=== PATIENT | male | born 1995 | race American Indian/Alaskan Native ===

== ENCOUNTER 2018-10-14 19:07 | Emergency (ER) | payer BC, OTHER ==
--- NOTE | 2018-10-14 19:22 | EDM.PDOC ---
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 Right Foot Pain Score (Numeric/FACES): 3 - Related Data Allergies Allergy/AdvReac Type Severity Reaction Status Date / Time No Known Allergies Allergy Verified 10/14/18 19:26 Home Meds: Home Meds . [No Known Home Meds] 01/08/15 [History] Past Medical History - Past Health History Medical/Surgical History: Denies Medical/Surgical History ED ROS GENERAL - Review of Systems Review Of Systems: ROS reveals no pertinent complaints other than HPI. ED EXAM, GENERAL - Physical Exam Exam: See Below Exam Limited By: No Limitations General Appearance: Alert, WD/WN, Mild Distress, Other (discomfort) Ears: Hearing Grossly Normal Throat/Mouth: Normal Voice, No Airway Compromise Head: Atraumatic Neck: Non-Tender, Full Range of Motion Respiratory/Chest: No Respiratory Distress Cardiovascular: Regular Rate, Rhythm GI/Abdominal: Soft, Non-Tender Extremities: Other (right 5th toe ecchymotic, WNL wnl, gait limited to pain) Neurological: Alert, Oriented, Normal Cognition, No Motor/Sensory Deficits Psychiatric: Normal Affect, Normal Mood Skin Exam: Warm, Dry, Normal Color Lymphatic: No Adenopathy Course - Vital Signs Last Recorded V/S: Last Vital Signs Temp 37.3 C 10/14/18 19:17 Pulse 101 H 10/14/18 19:17 Resp 18 10/14/18 19:17 BP 149/87 H 10/14/18 19:17 Pulse Ox 99 10/14/18 19:17 - Re-Assessments/Exams Free Text/Narrative Re-Assessment/Exam: 10/14/18 20:28 results discussed with pt. Departure - Departure Time of Disposition: 20:29 Disposition: Home, Self-Care 01 Condition: Good Clinical Impression: Injury of toe on right foot Qualifiers: Encounter type: initial encounter Qualified Code(s): S99.921A - Unspecified injury of right foot, initial encounter - Discharge Information Forms: ED Department Discharge Additional Instructions: 1) elevate right leg as much as possible next 48 hours 2) follow up at clinic 3) take tylenol or motrin for pain
[2018-10-14 19:26] VITALS: BP 149/87; PULSE 101
== END 2018-10-14 20:35 | disposition home or self-care (01) ==
LOC: DL.ED 19:07
DX: S90.121A Contusion of right lesser toe(s) without damage to nail, initial encounter (principal); W24.0XXA Contact with lifting devices, not elsewhere classified, initial encounter
CPT/HCPCS: 73620-RT; 99283-25

== ENCOUNTER 2020-01-02 18:45 | Emergency (ER) | payer BC, OTHER ==
[2020-01-02 18:52] VITALS: BP 155/87; PULSE 93
--- NOTE | 2020-01-02 19:42 | CR ---
PROCEDURE INFORMATION: Exam: XR Left Toe(s) Exam date and time: 01/02/2020 7:31 PM Age: 24 years old Clinical indication: Pain; Toes; Left; Additional info: [place] fell toe, laceration, bruising swelling TECHNIQUE: Imaging protocol: XR Left toes. Views: Minimum 2 views. COMPARISON: No relevant prior studies available. FINDINGS: Bones/joints: There is comminuted fracture throughout 1st proximal phalanx. Fracture extends to both proximal and distal articular surfaces. IMPRESSION: Comminuted 1st proximal phalanx fracture
[2020-01-02] MEDS ORDERED: Cephalexin 500 MG Cap PO ONE (20:01)
--- NOTE | 2020-01-02 20:03 | EDM.PDOC ---
ED HPI GENERAL MEDICAL PROBLEM - General Chief Complaint: Laceration Stated Complaint: BIG TOE PAIN Time Seen by Provider: 01/02/20 19:05 Source of Information: Reports: Patient History Limitations: Reports: No Limitations - History of Present Illness INITIAL COMMENTS - FREE TEXT/NARRATIVE: ED ambulatory with report of trailer door fell on toe around 4pm. Laceration to toe and pain with walking. Unsure of last tetnus, In [employer] so believes would be current. No other injury. - Related Data Allergies Allergy/AdvReac Type Severity Reaction Status Date / Time No Known Allergies Allergy Verified 10/14/18 19:26 Home Meds: Home Meds . [No Known Home Meds] 01/08/15 [History] Past Medical History - Past Health History Medical/Surgical History: Denies Medical/Surgical History Social & Family History - Family History Family Medical History: Noncontributory - Tobacco Use Smoking Status *Q: Never Smoker - Caffeine Use Caffeine Use: Reports: Soda - Recreational Drug Use Recreational Drug Use: No ED ROS GENERAL - Review of Systems Review Of Systems: Comprehensive ROS is negative, except as noted in HPI. ED EXAM, SKIN/RASH Exam: See Below Exam Limited By: No Limitations General Appearance: Alert, Mild Distress Eye Exam: Bilateral Eye: EOMI Ears: Normal External Exam Nose: Normal Inspection Throat/Mouth: Normal Inspection Head: Atraumatic, Normocephalic Neck: Normal Inspection Respiratory/Chest: No Respiratory Distress, Lungs Clear, Normal Breath Sounds Cardiovascular: Regular Rate, Rhythm Extremities: Joint Swelling (left great). No: Normal Range of Motion Psychiatric: Normal Affect Skin: Warm, Dry, Ecchymosis (great toe left), Wound/Incision (laceration 1cm superficial ) ED SKIN PROCEDURES - Laceration/Wound Repair Left Mid-Anterior Toe - Great Appearance: Superficial Distal NVT: Neuro & Vascular Intact Skin Prep: Chlorhexidine (Hibiciens), Saline Closed with: Dermabond Lac/Wound length In cm: 1 Course - Vital Signs Last Recorded V/S: Last Vital Signs Temp 98.5 F 01/02/20 18:51 Pulse 93 01/02/20 18:51 Resp 18 01/02/20 18:51 BP 155/87 H 01/02/20 18:51 Pulse Ox 96 01/02/20 18:51 - Orders/Labs/Meds Meds: Medications Discontinued Medications Generic Name Dose Route Start Last Admin Trade Name Bhargav PRN Reason Stop Dose Admin Cephalexin 500 mg 01/02/20 20:01 01/02/20 20:05 Keflex PO 01/02/20 20:02 500 mg ONETIME ONE Administration Departure - Departure Time of Disposition: 19:58 Disposition: Home, Self-Care 01 Condition: Fair Clinical Impression: Fracture of great toe, left, open Qualifiers: Encounter type: initial encounter Phalanx: proximal Fracture alignment: nondisplaced Qualified Code(s): S92.415B - Nondisplaced fracture of proximal phalanx of left great toe, initial encounter for open fracture - Discharge Information *PRESCRIPTION DRUG MONITORING PROGRAM REVIEWED*: No *COPY OF PRESCRIPTION DRUG MONITORING REPORT IN PATIENT SHWETHA: No Instructions: Toe Fracture, [id number] Referrals: Leobardo Alatorre PA-C [Primary Care Provider] - Forms: ED Department Discharge Additional Instructions: keep wound clean and dry ice elevate post op shoe heel weight bearing only crutches clinic follow up next week increased pain follow up in ortho clinic keflex 500mg three times daily one week alternate tylenol 650mg and ibuprofen 600mg every 4 hours as needed for discomfort Sepsis Event Note (ED) - Evaluation Sepsis Screening Result: No Definite Risk - Focused Exam Vital Signs: Vital Signs Temp Pulse Resp BP Pulse Ox 01/02/20 18:51 98.5 F 93 18 155/87 H 96
== END 2020-01-02 20:05 | disposition home or self-care (01) ==
LOC: DL.ED 18:45
DX: S92.415B Nondisplaced fracture of proximal phalanx of left great toe, initial encounter for open fracture (principal); W20.8XXA Other cause of strike by thrown, projected or falling object, initial encounter
CPT/HCPCS: 12001; 73660; 99283; A9270